=== PATIENT | male | born 1950 | race Caucasian/White ===

== ENCOUNTER → 2017-12-01 | Outpatient (CLI) | payer OTHER, BC ==
[~2017-12-01] MED LIST: ASPIR-LOW81 MG PO; ATORVASTATIN CA20 MG PO; LOSARTAN POTAS100 MG PO
== END | disposition home or self-care (01) ==
LOC: RES 14:00
DX: Z01.811 Encounter for preprocedural respiratory examination (principal)
CPT/HCPCS: 94060; 94726; 94729

== ENCOUNTER 2017-12-04 10:09 | Day surgery (SDC) | payer OTHER, BC ==
[~2017-12-04] VITALS: Ht 182.9 cm; Wt 79.4 kg
[2017-12-04 11:37] LABS: HEMATOCRIT 46.8 % (38.0-50.0); HEMOGLOBIN 15.7 G/DL (12.5-16.6); MCHC 33.5 G/DL (30.0-36.0); MCV 95.3 FL (86-99); PLATELET COUNT 186 K/uL (156-360); RBC DIS.WIDTH-CV 11.9 % (11.8-14.6); RBC DIS.WIDTH-SD 41.1 % (39-53); RED BLOOD COUNT 4.91 M/uL (4.00-5.50); WHITE BLOOD COUNT 6.7 K/uL (4.1-10.2)
== END 2017-12-04 17:28 | disposition home or self-care (01) ==
LOC: CATH 10:09
PROVIDERS: Internal Medicine Cardiovascular Disease
DX: I25.10 Atherosclerotic heart disease of native coronary artery without angina pectoris (principal); I35.0 Nonrheumatic aortic (valve) stenosis; I10 Essential (primary) hypertension; I71.2 Thoracic aortic aneurysm, without rupture; G45.3 Amaurosis fugax; E78.2 Mixed hyperlipidemia; Z98.1 Arthrodesis status; Z79.82 Long term (current) use of aspirin
CPT/HCPCS: 85027; 93005; C1769; C1887; C1894; J1644; J2250; J7040